=== PATIENT | male | born 1995 | race Two or more races ===

== ENCOUNTER 2024-04-19 09:41 | Emergency (ER) | payer OTHER, BC, SELFPAY ==
[2024-04-19 09:45] VITALS: BP 142/85; PULSE 57; PULSE 72; RESP 18; RESP 20; TEMP 36.9; O2SAT 99; BMI 30.7
--- NOTE | 2024-04-19 09:45 | PC.NURSE ---
JACIEL; per EMS reports, pt coming in for seizure witnessed at home by lasting about 4 minutes; per , his body wasn't shaking but his eyes rolled in the back of his head. Pt's PMH is seizure and brain tumor. Pt connected to monitors at this time.
--- NOTE | 2024-04-19 09:48 | EKG_ITS ---
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
--- NOTE | 2024-04-19 09:57 | EDNOTE_ITS ---
ED Seizures RME/HPI General Chief Complaint: Seizure Stated Complaint: SEIZURE Time Seen by Provider: 04/19/24 09:51 Arrival date/time: 04/19/24 09:41 Limitations: no limitations RME / HPI RME / HPI Narrative: Chief Complaint: The patient was brought in by ambulance after experiencing a seizure that lasted for approximately 4 minutes. The last recorded seizure occurred in August. There were no injuries sustained during the current episode. The patient has a documented history of seizures and a brain tumor. History of Present Illness: The patient was at home resting when the seizure occurred. No injuries were sustained as a result of the episode. The patient's medical history includes seizures and a brain tumor. The most recent seizure episode was reported in August. The patient is currently on antiseizure medications, and there have been no recent changes to the medication regimen. Related Data Home Medications ?Medication ?Instructions ?Recorded ?Confirmed lacosamide 200 mg tablet (Vimpat) 200 mg PO BID 04/19/24 04/19/24 Allergies Allergy/AdvReac Type Severity Reaction Status Date / Time No Known Allergies Allergy Verified 06/30/22 15:24 Review of Systems Review of Systems Systems Reviewed: All systems reviewed, normal except as documented ED Exam General Limitations: Present no limitations General appearance: Present alert and in no apparent distress Head Head exam: Present atraumatic Eye Eye exam: Present normal appearance Neck Neck exam: Present normal inspection Respiratory Respiratory exam: Present normal lung sounds bilaterally Cardiovascular Cardiovascular exam: Present regular rate and normal rhythm Abdominal Exam Abdominal exam: Present soft and normal bowel sounds Extremities Exam Extremities exam: Present normal inspection Neurological Exam Neurological exam: Present alert and CN II-XII intact Psychiatric Psychiatric exam: Present normal affect and normal mood Course Quality Measures none Orders Category Date Time Status EKG (ED ONLY) *Do not use* NOW Care 04/19/24 09:49 Completed EKG (ED Only) Stat Exams 04/19/24 09:48 Draft Ketorolac Inj [Toradol Inj] Med 04/19/24 11:13 Discontinued 30 mg IVP X1 ONE Lacosamide [Vimpat] Med 04/19/24 11:13 Discontinued 100 mg PO X1 ONE Lacosamide [Vimpat] Med 04/19/24 11:17 Discontinued 200 mg PO X1 ONE Vital Signs Vital signs: Vital Signs Temperature 98.5 F 04/19/24 09:45 Pulse Rate 57 L 04/19/24 09:45 Respiratory Rate 20 04/19/24 09:45 Blood Pressure 142/85 H 04/19/24 09:45 Pulse Oximetry (%) 99 04/19/24 09:45 Oxygen Delivery Method Room Air 04/19/24 09:45 Seizure MDM Narrative MDM Narrative:: Patient did not sustain any injuries. He was provided with his regular dose of lacosamide here in the emergency department and observed for extended length of time. He did not have any more seizure activities here in the emergency department. He is stable for discharge at this point. Patient data External records reviewed:: [facility] previous records and EMS form Clinical information provided by:: patient and EMS Social determinants that could affect healthcare access:: none Patient has the following chronic illnesses:: Seizure disorder, brain tumor How is presenting disease/condition affected by chronic disease/condition?: caused by Evaluation data The following diagnostics were reviewed and interpreted by me:: EKG tracing(s) Lab and/or radiology exams considered but not ordered:: Patient's last seizure was in September. It is a long condition. Interpretation Summary: NA Medications / Prescriptions Medications or Prescriptions considered but not ordered:: NA Medication administrations:: Medication Administration History Discontinued Medications Ketorolac Tromethamine (Ketorolac Inj 30 Mg/Ml Vial) 30 mg IVP X1 ONE Stop: 04/19/24 11:14 Last Admin: 04/19/24 11:21 Dose: 30 mg Documented By: GARETH Lacosamide (Lacosamide 50 Mg Tablet) 100 mg PO X1 ONE Stop: 04/19/24 11:14 Last Admin: 04/19/24 11:17 Dose: Not Given Documented By: GARETH Non-Admin Reason: Cancelled by Provider Lacosamide (Lacosamide 50 Mg Tablet) 200 mg PO X1 ONE Stop: 04/19/24 11:18 Last Admin: 04/19/24 11:21 Dose: 200 mg Documented By: GARETH noted Consultations Consultation(s) initiated? (list below): No Diagnosis Seizure Differential Diagnosis: generalized seizure Most likely diagnosis given after review of the tests above:: seizure Admission Indicated Admission indicated?: not indicated Admission Request Was there a request for admission?: No Disposition Plan Disposition Plan: Discharge Discharge Attestation Discharge Attestation: The patient and all family members were given an opportunity to ask questions and understood the discharge instructions. Discharge instructions specifically effects, indications for sooner follow up or return to the emergency department, and the expected course of current diagnosis. Patient condition: Stable Discharge Plan Plan Patient Disposition: HOME (Self Care) Patient condition on transfer: Stable Prescriptions/Referrals Prescriptions/Med Rec: No Action lacosamide [Vimpat] 200 mg Tablet 200 mg PO BID Referrals: Judith Mckay MD [Primary Care Provider] - In 1 week Problem List Clinical Impression: Epileptic seizure Patient/Caregiver Discharge Instructions Print Language: Pashto Stand Alone Forms: [facility] Award Info., Patient Portal Info Letter
[2024-04-19 10:04] VITALS: BP 130/84; PULSE 57; RESP 20; TEMP 36.9; O2SAT 97
--- NOTE | 2024-04-19 11:12 | PC.NURSE ---
Dr. Garcia made aware that pt's headache is now a 11/29. Per Dr. Garcia, will order something for pain for pt.
[2024-04-19] MEDS: KETOROLAC INJ 30 MG/ML VIAL IVP (11:21)
[2024-04-19] MEDS: LACOSAMIDE 50 MG TABLET 200 MG PO (11:21)
[2024-04-19 12:01] VITALS: BP 121/83; PULSE 53; RESP 18; TEMP 37.1; O2SAT 98
== END 2024-04-19 12:12 | disposition home or self-care (01) ==
PROVIDERS: Emergency Provider Emergency Medicine; PCP Family Medicine
DX: G40.909 Epilepsy, unspecified, not intractable, without status epilepticus (principal); R00.1 Bradycardia, unspecified
CPT/HCPCS: 93005; 96374; 99284; J1885; A9270

== ENCOUNTER 2024-05-25 15:22 | Emergency (ER) | payer OTHER, SELFPAY ==
[2024-05-25 15:34] VITALS: PULSE 94; RESP 16; O2SAT 97
[2024-05-25 15:42] VITALS: BMI 29.9
--- NOTE | 2024-05-25 15:45 | PC.NURSE ---
pt came in with c/o seizure activity. pt was at work when he stated that he felt a twitch and told coworkers and he then began having a full body seizure. pt has history of sz and last had one in March. no injury reported. pt states that coworkers assisted him down to floor. pt is alert and oriented at this time. pt states that he is compliant with his medications
[2024-05-25 15:46] VITALS: BP 145/96; PULSE 93; RESP 16; TEMP 36.8; O2SAT 97
--- NOTE | 2024-05-25 16:28 | PD.EDSEIZ ---
ED Seizures RME/HPI General Chief Complaint: Seizure Stated Complaint: SEIZURE Time Seen by Provider: 05/25/24 15:46 Arrival date/time: 05/25/24 15:22 RME / HPI RME / HPI Narrative: DR. CLARK MAIN ED EVALUATION: 28 year old male with past medical history significant for seizures secondary to h/o meningioma BIBA with complaint of seizure at work today that lasted 2-3 minutes. Denies injury. Patient has history of a large meningioma s/p right frontoparietal craniotomy with gross total resection on 07/02/2022 at [facility]. Patient states he does not recall the seizure, but it was reportedly witnessed by coworkers who called EMS. Related Data Home Medications ?Medication ?Instructions ?Recorded ?Confirmed lacosamide 200 mg tablet (Vimpat) 200 mg PO BID 04/19/24 04/19/24 Allergies Allergy/AdvReac Type Severity Reaction Status Date / Time No Known Allergies Allergy Verified 06/30/22 15:24 Review of Systems Review of Systems Systems Reviewed: All systems reviewed, normal except as documented Narrative Review of Systems: GEN: No fever, no chills, no weight loss EYES: No discharge, no visual changes, no pain HEENT: No ear pain, no congestion, no sore throat PULM: No shortness of breath, no cough, no congestion CV: No chest pain, no dyspnea on exertion, no palpitations GI: No nausea, no vomiting, no diarrhea, no pain, no constipation : No frequency, no urgency and no dysuria MUSC/SKEL: No joint pain, no back pain SKIN: No rash PSYCH: No hallucinations, no depression HEME/LYMPH: No easy bleeding or bruising tendencies NEURO: No weakness, no headache, + seizure (see HPI) Past Medical History Past Medical History NEUROLOGIC: Positive Neurological Disorders, Brain Tumor (Jun 2022), Seizures and Head Trauma CARDIAC: Negative Congestive Heart Failure RESPIRATORY: Negative Chronic Obstructive Pulmonary Disease (COPD) GENITOURINARY: Negative Renal Disease ENT: Positive Head Trauma ENDOCRINE: Negative Diabetes Mellitus Type 1 or Diabetes Mellitus Type 2 OTHER HISTORY: Positive Radiation Therapy (July-September 2022); Negative Cancer Surgical History SURGICAL: Positive Neurologic Surgery Social History SMOKING STATUS: Never smoker SUBSTANCE USE: does not use ALCOHOL: Never ED Exam Narrative Physical exam: GENERAL APPEARANCE: alert and oriented x 4, well-developed, well-nourished, no acute distress VITALS: All vitals were reviewed and the pulse ox is 97% on room air, which is normal according to my interpretation. HEENT: Normocephalic, atraumatic; pupils equal, round, reactive to light; EOMI; mucous membranes pink, moist; oropharynx clear NECK: Supple LUNGS: CTABL; no wheezes, no rales, no rhonchi HEART: Regular rate, regular rhythm; normal S1, S2; no murmurs ABDOMEN: non distended; normal BS; soft, no tenderness, no guarding, no rebound; no masses, no organomegaly, no hernia BACK: no CVA tenderness EXTREMITIES: atraumatic; no edema NEUROLOGIC: awake; alert and oriented x4; cranial nerves II-XII grossly intact; no focal sensory or motor deficits PSYCHIATRIC: appropriate mood and affect SKIN: warm, dry, normal color; no rashes Course Quality Measures none Orders Category Date Time Status LORazepam [Ativan] Med 05/25/24 16:18 Discontinued 1 mg PO X1 ONE Reevaluation(s) Reevaluation #1: Patient remains clinically stable throughout the emergency department visit. Re-assessment at the time of disposition demonstrates that the patient is in no acute distress. We reviewed all the results, analysis, and treatment plans. Patient is amenable to discharge. Strict return precautions were outlined. Patient was discharged in stable condition. Time: 17:30 Vital Signs Vital signs: Vital Signs Temperature 98.3 F 05/25/24 15:46 Pulse Rate 93 05/25/24 15:46 Respiratory Rate 16 05/25/24 15:46 Blood Pressure 145/96 H 05/25/24 15:46 Pulse Oximetry (%) 97 05/25/24 15:46 Oxygen Delivery Method Room Air 05/25/24 15:46 Seizure MDM Narrative MDM Narrative:: IAyala am scribing for and in the presence of Dr. Clark. Patient data External records reviewed:: [facility] previous records (Reviewed last ED visit dated 04/19/24, discharged with the following: Epileptic seizure.) and EMS form Clinical information provided by:: patient and EMS Social determinants that could affect healthcare access:: none Patient has the following chronic illnesses:: Seizures How is presenting disease/condition affected by chronic disease/condition?: caused by Evaluation data The following diagnostics were reviewed and interpreted by me:: other (specify) (none) Lab and/or radiology exams considered but not ordered:: none Interpretation Summary: n/a Medications / Prescriptions Medications or Prescriptions considered but not ordered:: none Medication administrations:: Medication Administration History Discontinued Medications Lorazepam (Lorazepam 0.5 Mg Tablet) 1 mg PO X1 ONE Stop: 05/25/24 16:19 Last Admin: 05/25/24 16:31 Dose: 1 mg Documented By: DO see above Consultations Consultation(s) initiated? (list below): No Diagnosis Seizure Differential Diagnosis: focal seizure, generalized seizure, epileptic seizure and status epilepticus Most likely diagnosis given after review of the tests above:: Recurrent seizures Admission Indicated Admission indicated?: not indicated Admission Request Was there a request for admission?: No Disposition Plan Disposition Plan: Discharge Discharge Attestation Discharge Attestation: The patient and all family members were given an opportunity to ask questions and understood the discharge instructions. Discharge instructions specifically effects, indications for sooner follow up or return to the emergency department, and the expected course of current diagnosis. Patient condition: Stable Discharge Plan Plan Patient Disposition: HOME (Self Care) Prescriptions/Referrals Prescriptions/Med Rec: No Action lacosamide [Vimpat] 200 mg Tablet 200 mg PO BID Problem List Clinical Impression: Recurrent seizures Patient/Caregiver Discharge Instructions Education Materials: ED Seizure, Recurrent (Adult) Additional Instructions: Follow up with your neurologist, Dr. Garnica for further recommendations. Print Language: Wolof Stand Alone Forms: [facility] Award Info., Patient Portal Info Letter
[2024-05-25] MEDS: LORazepam 0.5 MG TABLET 1 MG PO (16:31)
[2024-05-25 17:49] VITALS: BP 120/75; PULSE 97; RESP 24; TEMP 36.7; O2SAT 97
== END 2024-05-25 18:15 | disposition home or self-care (01) ==
PROVIDERS: Emergency Provider Emergency Medicine; PCP Nurse Practitioner Family
DX: R56.9 Unspecified convulsions (principal)
CPT/HCPCS: 99282; A9270

== ENCOUNTER 2024-09-05 15:25 | Emergency (ER) | payer OTHER, BC, SELFPAY ==
--- NOTE | 2024-09-05 15:36 | PD.EDADULT ---
ED General RME/HPI General Chief complaint: Seizure Stated complaint: SIEZURE Time Seen by Provider: 09/05/24 15:35 Arrival date/time: 09/05/24 15:25 RME / HPI RME / HPI narrative: 29 year old male with history of seizures s/p meningioma resection, on 2 different medications and compliant with regimen, presents to the ED BIBA from work for evaluation after breakthrough seizure today. Patient attributes his seizure today to be related to stress. States work has been more stressful recently but is not to the point of losing sleep. No other associated symptoms or complaints reported. Denies headache or recent illness. Related Data Home Medications ?Medication ?Instructions ?Recorded ?Confirmed lacosamide 200 mg tablet (Vimpat) 200 mg PO BID 04/19/24 04/19/24 Allergies Allergy/AdvReac Type Severity Reaction Status Date / Time No Known Allergies Allergy Verified 06/30/22 15:24 Review of Systems Review of Systems Narrative Review of Systems: Gen: No fever, no chills, no weight loss EYES: No discharge, no visual changes, no pain HEENT: No ear pain, no congestion, no sore throat PULM: no shortness of breath, no cough, no congestion CV: No chest pain, no dyspnea on exertion, no palpitations, no chest tightness GI: No nausea, no vomiting, no diarrhea, no pain, no constipation : No frequency, no urgency,? no dysuria Musc/skel: No joint pain, no back pain Skin: No rash, no ecchymosis, no lesions Psyc: No hallucinations, no depression Heme/Lymph: No easy bleeding or bruising tendencies Neuro: No weakness, no headache, +seizure Past Medical History Past Medical History NEUROLOGIC: Positive Neurological Disorders, Brain Tumor (Jun 2022), Seizures and Head Trauma CARDIAC: Negative Congestive Heart Failure RESPIRATORY: Negative Chronic Obstructive Pulmonary Disease (COPD) GENITOURINARY: Negative Renal Disease ENT: Positive Head Trauma ENDOCRINE: Negative Diabetes Mellitus Type 1 or Diabetes Mellitus Type 2 OTHER HISTORY: Positive Radiation Therapy (July-September 2022); Negative Cancer Surgical History SURGICAL: Positive Neurologic Surgery Social History SMOKING STATUS: Never smoker SUBSTANCE USE: does not use ED Exam Narrative Physical exam: GENERAL APPEARANCE: AxOx4, no obvious distress, nontoxic appearing HEENT: NC, AT. MMM. EOMI, clear conjunctiva, oropharynx clear. NECK: Supple without lymphadenopathy. No stiffness or restricted ROM. HEART: Normal rate and regular rhythm, normal S1/S1, no m/r/g LUNGS: CTAB, moving air well. No crackles or wheezes are heard. ABDOMEN: Soft, nontender, nondistended with good bowel sounds heard. BACK: No midline C/T/L spine pain or deformity, No CVAT, no obvious deformity. EXTREMITIES: Without cyanosis, clubbing or edema. MUSCULOSKELETAL: FROM of all major joints, no chest tenderness NEUROLOGICAL: Grossly nonfocal. Alert and oriented, moving all 4 extremities. CN not formally tested but appear grossly intact. Skin: Warm and dry without any rash. Course Quality Measures none Orders Category Date Time Status Seizure precautions NOW Care 09/05/24 15:36 Completed CMP [Comprehensive Metabolic Panel] Stat Lab 09/05/24 16:27 Completed Reevaluation(s) Reevaluation #1: Patient remains clinically stable throughout the emergency department visit. We reviewed all the results, analysis, and treatment plans. Patient is amenable to discharge. Strict return precautions were outlined. Patient was discharged in stable condition. Time: 17:05 Vital Signs Vital signs: Vital Signs Temperature 97.5 F 09/05/24 16:00 Pulse Rate 64 09/05/24 16:00 Respiratory Rate 18 09/05/24 16:00 Blood Pressure 140/87 H 09/05/24 16:00 Pulse Oximetry (%) 99 09/05/24 16:00 Oxygen Delivery Method Room Air 09/05/24 16:00 Pulse ox is 99% on room air which is adequate. Discharge Plan Plan Patient Disposition: HOME (Self Care) Prescriptions/Referrals Prescriptions/Med Rec: No Action lacosamide [Vimpat] 200 mg Tablet 200 mg PO BID Referrals: MAXIM BLACKMON [Primary Care Provider] - In 1 week Problem List Clinical Impression: Seizure Patient/Caregiver Discharge Instructions Education Materials: ED Seizure, Recurrent (Adult) Additional Instructions: Is okay to take your normal dose of epilepsy medicines this evening. Consider using the evening for stress release activities. Follow-up with your neurologist as scheduled. You can return to the emergency department sooner symptoms worsen or if you notice any new, concerning issues. Print Language: Burkinan Stand Alone Forms: [facility] Award Info., Work/School Release, Patient Portal Info Letter
[2024-09-05 16:00] VITALS: BP 140/87; PULSE 64; RESP 18; TEMP 36.4; O2SAT 99
[2024-09-05 16:01] VITALS: BMI 29.2
[2024-09-05 16:05] VITALS: PULSE 92; RESP 18; O2SAT 99
[2024-09-05 16:59] LABS: Alanine Aminotransferase 22 U/L (10-49); Albumin, Serum 4.4 gm/dL (3.5-5.0); Albumin/Globulin Ratio 1.6 (1.2-2.2); Alkaline Phosphatase 77 U/L (46-116); Anion Gap 7 (7-16); Aspartate Amino Transferase 13 U/L (0-34); BUN/Creatinine Ratio 16 Ratio (12-20); Bilirubin,Total 0.4 mg/dL (0.3-1.2); Blood Urea Nitrogen 14 mg/dL (9-23); Calcium 9.1 mg/dL (8.3-10.6); Calcium (Corrected) 9.1 mg/dL (8.5-10.1); Carbon Dioxide 28.1 mMol/L (20.0-31.0); Chloride 106 mMol/L (98-107); Creatinine (Component) 0.9 mg/dL (0.6-1.3); Estimated Creatinine Clearance 141.4 mL/min (>60); Globulin 2.7 gm/dL (2.3-3.5); Glucose 123 mg/dL (74-106); Osmolality,Calculated 282 (275-295); Potassium 3.5 mMol/L (3.4-5.1); Sodium 141 mMol/L (136-145); Total Protein 7.1 gm/dL (5.7-8.2); eGFR > 60 See Note
[2024-09-05 18:07] VITALS: BP 137/87; PULSE 61; RESP 18; TEMP 36.6; O2SAT 99
== END 2024-09-05 18:08 | disposition home or self-care (01) ==
PROVIDERS: Emergency Provider Emergency Medicine; PCP Nurse Practitioner Family
DX: R56.9 Unspecified convulsions (principal)
CPT/HCPCS: 36415; 80053; 99283

== ENCOUNTER 2025-03-12 17:10 | Emergency (ER) | payer OTHER, BC, SELFPAY ==
[2025-03-12 17:12] VITALS: BP 145/99; PULSE 90; RESP 18; TEMP 37.1; O2SAT 96; BMI 24.3
--- NOTE | 2025-03-12 17:16 | XR_ITS ---
Examination: CT brain head without contrast. 2-D sagittal coronal reconstructions Date and time of exam: March 12, 2025, 1943 hours INDICATIONS: Dizziness status post seizure and headache today, history of brain tumor 2022 CTDI: vol (mGy): 51.6 DLP: (mGycm): 1053 Technique: Multiple CT axial sections of the brain have been obtained, 5 mm slice thickness. Contrast has not been administered. 2-D sagittal, coronal reconstructions have been obtained Low dose protocols were performed. One or more of the following dose reduction techniques were used; automated exposure control, adjustment of the mA and/or KV according to patient size, use of iterative reconstruction technique. Findings: Right frontal craniotomy defect Encephalomalacia and postsurgical change external to the right frontal lobe again noted Ventricles are not enlarged No interval hemorrhage or mass effect IMPRESSION: Chronic changes stable compared with August 23, 2023 No interval acute hemorrhage or mass effect No findings or recurrent tumor noted, but brain MRI postcontrast would best exclude recurrent brain tumor
--- NOTE | 2025-03-12 17:19 | EDNOTE_ITS ---
ED Seizures RME/HPI General Chief Complaint: Seizure Stated Complaint: SEIZURES Time Seen by Provider: 03/12/25 17:15 Source: patient Arrival date/time: 03/12/25 17:10 Mode of arrival: EMS Limitations: no limitations RME / HPI RME / HPI Narrative: Patient is a 29-year-old male with medical history notable for meningioma resected, epilepsy that send Emergency Department with concerns for breakthrough seizure seizure was witnessed by family. He was in bed. He did not hit his head, and patient is not taking any blood thinners. Patient denies any fevers, chills, nausea, vomiting, abdominal pain, dysuria diarrhea, drugs, alcohol, smoking, sick contacts or recent travel, or changes to medications. Patient states that he follows with a neurologist at [facility] where they did his resection of his meningioma. States that he gets breakthrough seizures every approximately 5 to 6 months. His last appointment with his neurologist at [facility] was earlier this month. No changes in his medications . patient did have an episode of incontinence during the seizure. No oropharyngeal trauma Related Data Home Medications ?Medication ?Instructions ?Recorded ?Confirmed lacosamide 200 mg tablet (Vimpat) 200 mg PO BID 04/19/24 Allergies Allergy/AdvReac Type Severity Reaction Status Date / Time No Known Allergies Allergy Verified 06/30/22 15:24 ED Exam General Limitations: Present no limitations General appearance: Present alert Head Head exam: Present atraumatic and normocephalic Eye Eye exam: Present normal appearance and PERRL ENT ENT exam: Present normal exam Neck Neck exam: Present normal inspection Chest Chest inspection: Present normal inspection; Absent symmetric chest wall rise Respiratory Respiratory exam: Present normal lung sounds bilaterally and respiratory distress; Absent wheezes Cardiovascular Cardiovascular exam: Present regular rate and normal rhythm Abdominal Exam Abdominal exam: Present soft; Absent distention or tenderness Extremities Exam Extremities exam: Present normal inspection Neurological Exam Neurological exam: Present alert, oriented X3, CN II-XII intact and other (No gross focal neurodeficits) Psychiatric Psychiatric exam: Present normal affect and normal mood Course Quality Measures none Orders Category Date Time Status EKG (ED ONLY) *Do not use* NOW Care 03/12/25 17:23 Completed Seizure precautions NOW Care 03/12/25 17:[address] head/brain wo con Stat Exams 03/12/25 17:16 Completed EKG (ED Only) Stat Exams 03/12/25 17:23 Draft CBC Stat Lab 03/12/25 17:37 Completed CMP [Comprehensive Metabolic Panel] Stat Lab 03/12/25 17:37 Completed Drug Screen,Urine Stat Lab 03/12/25 19:24 Completed PT [Prothrombin Time with INR] Stat Lab 03/12/25 17:37 Completed Troponin I Stat Lab 03/12/25 17:37 Completed UA, C/S IF [Urinalysis, C/S if Indicated] Stat Lab 03/12/25 19:24 Completed levETIRAcetam INJ [Keppra Inj] Med 03/12/25 17:16 Discontinued 1,000 mg IVP X1 ONE Vital Signs Vital signs: Vital Signs Temperature 98.8 F 03/12/25 17:12 Pulse Rate 90 03/12/25 17:12 Respiratory Rate 18 03/12/25 17:12 Blood Pressure 145/99 H 03/12/25 17:12 Pulse Oximetry (%) 96 03/12/25 17:12 Oxygen Delivery Method Room Air 03/12/25 17:12 Seizure MDM Narrative MDM Narrative:: Patient is a 29-year-old male with medical history notable for resected meningioma, epilepsy to the Emergency Department concerns for breakthrough seizure. Vital signs and exam as listed. Concern for metabolic disturbance, intracranial hemorrhage, breakthrough seizure among others. Patient is GCS 15, no focal neurodeficits he is back to his neurologic baseline. Provided medication for seizure prevention, ordered labs, CT brain given his history of meningioma. Also ordered seizure precautions. Will also provide patient with his home medications procedures that is scheduled time. Labs without acute hematologic or significant metabolic derangement, troponin not elevated. Urinalysis without evidence of infection drug screen negative, CT brain unremarkable. On multiple reevaluations patient hemodynamically stable not in distress, has remained asymptomatic will discharge home close return precautions follow-up with a doctor as well as his neurologist. Patient data External records reviewed:: [facility] previous records and EMS form Clinical information provided by:: patient and EMS Social determinants that could affect healthcare access:: none Patient has the following chronic illnesses:: See MDM How is presenting disease/condition affected by chronic disease/condition?: uneffected by Evaluation data The following diagnostics were reviewed and interpreted by me:: lab results, radiology exam(s) and EKG tracing(s) Lab and/or radiology exams considered but not ordered:: none Interpretation Summary: see mdm Medications / Prescriptions Medications or Prescriptions considered but not ordered:: none Medication administrations:: Medication Administration History Discontinued Medications Levetiracetam (Levetiracetam Inj 100 Mg/Ml Vial 5ml) 1,000 mg IVP X1 ONE Stop: 03/12/25 17:17 Last Admin: 03/12/25 19:00 Dose: 1,000 mg Documented By: VL none Consultations Consultation(s) initiated? (list below): No Diagnosis Seizure Differential Diagnosis: other (see mdm ) Most likely diagnosis given after review of the tests above:: breakthrough seizure Admission Indicated Admission indicated?: not indicated Admission Request Was there a request for admission?: No Disposition Plan Disposition Plan: Discharge Discharge Attestation Discharge Attestation: The patient and all family members were given an opportunity to ask questions and understood the discharge instructions. Discharge instructions specifically effects, indications for sooner follow up or return to the emergency department, and the expected course of current diagnosis. Patient condition: Stable Discharge Plan Plan Patient Disposition: HOME (Self Care) Prescriptions/Referrals Prescriptions/Med Rec: No Action lacosamide [Vimpat] 200 mg Tablet 200 mg PO BID Problem List Clinical Impression: Seizure Patient/Caregiver Discharge Instructions Education Materials: ED Seizure, Recurrent (Adult) Additional Instructions: It is important that you follow-up with your neurologist within the next 1 to 2 days. Return to the emergency room immediately if you have worsening symptoms or new symptoms or concern Print Language: Ukrainian Stand Alone Forms: [facility] Award Info., Patient Portal Info Letter
--- NOTE | 2025-03-12 17:23 | EKG_ITS ---
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
[2025-03-12 17:26] VITALS: PULSE 92; RESP 18; O2SAT 99
[2025-03-12 17:42] LABS: Basophils # (Auto) 0.1 Thou/mm3 (0.0-0.2); Basophils % (Auto) 1 % (0-2.5); Eosinophils # (Auto) 0.4 Thou/mm3 (0.0-0.5); Eosinophils % (Auto) 4 % (0-10); Hematocrit 38.8 % (41.0-53.0); Hemoglobin 13.4 g/dL (13.5-16.0); Immature Granulocytes Auto 0.03 Thou/mm3 (0.00-0.00); Lymphocytes # (Auto) 3.8 Thou/mm3 (1.0-4.8); Lymphocytes % (Auto) 38 % (10-50); Mean Corpuscular HGB Conc 34.5 g/dl (31.0-37.0); Mean Corpuscular Hemoglobin 28.8 pg (25.0-35.0); Mean Corpuscular Volume 83 fL (80-100); Monocytes # (Auto) 0.8 Thou/mm3 (0.0-0.8); Monocytes % (Auto) 8 % (0-12); Neutrophils # (Auto) 4.9 Thou/mm3 (1.8-7.7); Neutrophils % (Auto) 49 % (37-80); Nucleated Red Blood Cell # 0.00 Thou/mm3 (0.00-0.00); Nucleated Red Blood Cell % 0 /100 WBC (0); Platelet Count 288 Thou/mm3 (140-440); RDW Standard Deviation 40.1 fL (35.1-43.9); Red Blood Count 4.66 Miln/mm3 (4.50-5.90); White Blood Count 9.9 Thou/mm3 (3.8-10.6)
[2025-03-12 17:58] LABS: INR 0.9 (0.9-1.3); Prothrombin Time 10.0 Seconds (9.0-12.2)
[2025-03-12 18:01] LABS: Alanine Aminotransferase 31 U/L (10-49); Albumin, Serum 5.1 gm/dL (3.5-5.0); Albumin/Globulin Ratio 2.4 (1.2-2.2); Alkaline Phosphatase 71 U/L (46-116); Anion Gap 11 (7-16); Aspartate Amino Transferase 15 U/L (0-34); BUN/Creatinine Ratio 12 Ratio (12-20); Bilirubin,Total 0.3 mg/dL (0.3-1.2); Blood Urea Nitrogen 12 mg/dL (9-23); Calcium 9.3 mg/dL (8.3-10.6); Calcium (Corrected) 9.3 mg/dL (8.5-10.1); Carbon Dioxide 25.2 mMol/L (20.0-31.0); Chloride 104 mMol/L (98-107); Creatinine (Component) 1.0 mg/dL (0.6-1.3); Estimated Creatinine Clearance 108.0 mL/min (>60); Globulin 2.1 gm/dL (2.3-3.5); Glucose 113 mg/dL (74-106); Osmolality,Calculated 280 (275-295); Potassium 4.1 mMol/L (3.4-5.1); Sodium 140 mMol/L (136-145); Total Protein 7.2 gm/dL (5.7-8.2); Troponin I < 0.002 ng/mL (0.0-0.045); eGFR > 60 See Note
[2025-03-12] MEDS: levETIRAcetam INJ 100 MG/ML VIAL 5ML 1000 MG IVP (19:00)
[2025-03-12 19:50] LABS: Collection Type, Urine Clean Catch; Squamous Epithelial Cell,Urine 0 /hpf (0-5)
[2025-03-12 19:57] LABS: Bilirubin,Urine Negative (Negative); Blood,Urine Negative (Negative); Clarity,Urine Clear (Clear/Hazy); Color,Urine Colorless (Lt Yel-Yel); Culture Indicated,Urine Not Indicated; Glucose, Urine Negative (Negative); Ketones,Urine Negative (Negative); Leukocyte Esterase,Urine Negative (Negative); Nitrite,Urine Negative (Negative); PH,Urine 6.5 (5.0-7.0); Protein,Urine Negative (Neg - Trace); RBC,Urine 1 /hpf (0-3); Specific Gravity,Urine 1.005 (1.001-1.035); Urobilinogen,Urine Negative mg/dL (0.0-1.0); WBC,Urine 1 /hpf (0-5)
[2025-03-12 20:04] LABS: Amphetamine/Methamp Scrn,U Negative (Negative); Barbiturate Screen,Urine Negative (Negative); Benzodiazepines Screen,Urine Negative (Negative); Benzoylecgonine Screen, Ur Negative (Negative); Fentanyl Screen,Urine Negative (Negative); Opiate Screen,Urine Negative (Negative); THC Screen,Urine Negative (Negative)
[2025-03-12 21:34] VITALS: BP 131/78; PULSE 66; PULSE 78; RESP 18; RESP 19; TEMP 36.3; TEMP 36.8; O2SAT 98; O2SAT 99
[2025-03-12] MEDS: ACETAMINOPHEN 325 MG TABLET 650 MG PO (21:45)
== END 2025-03-12 21:51 | disposition home or self-care (01) ==
LOC: SERX 17:50
PROVIDERS: Emergency Provider Emergency Medicine; PCP Nurse Practitioner Family
DX: G40.909 Epilepsy, unspecified, not intractable, without status epilepticus (principal); D32.9 Benign neoplasm of meninges, unspecified; R32 Unspecified urinary incontinence
CPT/HCPCS: 36415; 70450; 80053; 80307; 81001; 84484; 85025; 85610; 93005; 96374; 99282; J1953; A9270